=== PATIENT | female | born 1960 | race American Indian/Alaskan Native ===

== ENCOUNTER 2017-12-02 20:40 | Emergency (ER) | payer SELFPAY ==
--- NOTE | 2017-12-03 01:02 | Emergency Department Report ---
HPI - General Chief Complaint: Medical Clearance Time Seen by Provider: 12/02/17 23:51 - HPI HPI: The patient is a 57-year-old female with a significant history of mental health disease, who presents for evaluation of mental health. The patient states that she has been off of her mental health medication regimen, she requested prescription refill. The patient's mother states that the patient has been delusional and exhibiting abnormal behavior. The patient's mother shares that the patient's is , but the patient states on interview that she is still to her , whom is actually . The patient denies fever, headache, unexplained weight loss or weight gain, heat or cold intolerance, skin, hair, or nail changes, neuro deficits, homicidal ideations, or auditory or visual hallucinations. ED Past Medical Hx - Past Medical History Previous Medical History?: Yes Hx Hypertension: Yes Hx Psychiatric Treatment: Yes (Bipolar) Hx Asthma: Yes - Surgical History Past Surgical History?: No - Social History Smoking Status: Current Every Day Smoker Substance Use Type: None ED Review of Systems ROS: Stated complaint: MEDS Other details as noted in HPI Constitutional: denies: fever ENT: denies: throat or neck pain Respiratory: denies: cough, shortness of breath Cardiovascular: denies: chest pain Endocrine: denies unexplained weight loss or gain Gastrointestinal: denies: abdominal pain, nausea Genitourinary: denies: dysuria Musculoskeletal: denies: leg swelling Skin: denies: rash Neurological: denies: headache Hematological/Lymphatic: denies: easy bleeding or easy bruising Psych: denies sadness or hopelessness Physical Exam - Physical Exam Vital Signs: Vital Signs 12/02/17 12/03/17 20:58 00:17 Temperature 98.4 F 98.6 F Pulse Rate 94 H 102 H Respiratory 18 18 Rate Blood Pressure 179/97 Blood Pressure 164/92 [Right] O2 Sat by Pulse 98 98 Oximetry Physical Exam: General: well-nourished, well-developed, no acute distress Head: Normocephalic, atraumatic Eyes: normal sclera ENT: Mucous membranes are pink and moist Neck: trachea midline, neck supple, No neck stiffness, no cervical adenopathy Respiratory: Breath sounds equal bilaterally, no wheezing, rales, or rhonchi Cardio: S1 and S2 present, no murmurs, rubs, gallops, capillary refill is brisk Abdomen: Normoactive bowel sounds, soft abdomen, no rigidity, no guarding or rebound tenderness Musc: No pitting edema Skin: No rash Neuro: no facial drooping, normal speech Psych: Normal affect, poor insight, disorganized thoughts, no hallucinations ED Course Vital Signs 12/02/17 12/03/17 20:58 00:17 Temperature 98.4 F 98.6 F Pulse Rate 94 H 102 H Respiratory 18 18 Rate Blood Pressure 179/97 Blood Pressure 164/92 [Right] O2 Sat by Pulse 98 98 Oximetry ED Medical Decision Making - Medical Decision Making The patient was seen and examined by myself. The patient is placed on a hospital monitor and continuous pulse ox. On initial evaluation, the patient was found to be in no distress. Labs collection is pending as the patient has declined lab draw. Mental health is consulted. Mental health evaluates the patient and agrees that the patient is exhibiting signs of acute psychosis. A 1013 is completed. The patient will be admitted to a psychiatric facility once labs are obtained, once she is medically clear, and once bed placement is obtained. Critical care attestation.: If time is entered above; I have spent that time in minutes in the direct care of this critically ill patient, excluding procedure time. ED Disposition Clinical Impression: Acute psychosis Disposition: [id number]/TX-65 PSY HOSP/PSY UNIT Is pt being admited?: No Does the pt Need Aspirin: No Condition: Stable Referrals: PRIMARY CARE, [Primary Care Provider] - 3-5 Days Time of Disposition: 01:27
[2017-12-03] MEDS ORDERED: CATAPRES PO ONE (01:28)
[2017-12-03] MEDS ORDERED: VALIUM PO ONE (01:28)
[2017-12-03] MEDS ORDERED: TYLENOL PO PRN (01:29)
[2017-12-03] MEDS ORDERED: MILK OF MAGNESIA PO PRN (01:29)
[2017-12-03] MEDS ORDERED: ALUM-MAG HYDROX-SIMETH 200-200-20MG/5ML PO PRN (01:29)
[2017-12-03 02:20] LABS: Bilirubin,Urine NEG (Negative); Blood,Urine SM (Negative); Color,Urine Straw (Yellow); Protein,Urine <15 mg/dL mg/dL (Negative); Urobilinogen,Urine < 2.0 mg/dL (<2.0)
[2017-12-03 02:28] LABS: Amphetamine Screen,Urine PRESUMPTIVE NEGATIVE; Benzodiazepines Screen,Urine PRESUMPTIVE NEGATIVE; Cannabinoid Screen,Urine PRESUMPTIVE NEGATIVE; Cocaine Screen,Urine PRESUMPTIVE NEGATIVE; Methadone Screen,Urine PRESUMPTIVE NEGATIVE; Opiate Screen,Urine PRESUMPTIVE NEGATIVE
[2017-12-03 03:20] LABS: Basophils # (Auto) 0.1 K/mm3 (0.0-0.1); Basophils % (Auto) 0.7 % (0.0-1.8); Eosinophils # (Auto) 0.1 K/mm3 (0.0-0.4); Eosinophils % (Auto) 0.8 % (0.0-4.3); Hematocrit 39.4 % (30.3-42.9); Hemoglobin 13.5 gm/dl (10.1-14.3); Lymphocytes # (Auto) 1.6 K/mm3 (1.2-5.4); Lymphocytes % (Auto) 21.2 % (13.4-35.0); Mean Corpuscular HGB Conc 34 % (30-34); Mean Corpuscular Hemoglobin 35 pg (28-32); Mean Corpuscular Volume 102 fl (79-97); Monocytes # (Auto) 0.6 K/mm3 (0.0-0.8); Monocytes % (Auto) 8.2 % (0.0-7.3); Platelet Count 220 K/mm3 (140-440); Red Blood Count 3.88 M/mm3 (3.65-5.03); Red Cell Distribution Width 13.1 % (13.2-15.2)
[2017-12-03] MEDS ORDERED: CATAPRES ONE (03:30)
[2017-12-03 03:43] LABS: BUN/Creatinine Ratio 23; Blood Urea Nitrogen 14 mg/dL (7-17); Calcium 9.6 mg/dL (8.4-10.2); Hemolysis Index 6
[2017-12-03 13:20] VITALS: BP 123/76
--- NOTE | 2017-12-03 14:08 | Consultation ---
History of Present Illness - Reason for Consult Consult date: 12/03/17 Reason for consult: Mental Health Evaluation Requesting physician: CANDIDA VANCE - Chief Complaint Chief complaint: "I need my medications filled" - History of Present Psychiatric Illness 57-year-old female with a significant history of mental health disease, who presents for evaluation of mental health. Today the patient is calm, but hyper verbal during the assessment. She stated that she came to the ER to get her medication filled. She was disorganized with her thoughts and also referenced that she live with her . Per the record, the patient's is . She is adamant that her is still alive and currently at work today. She was asked about her sleep, she stated not sleeping the past 2 days. She stated having increased energy. She denies SI/HI's and AVH's. She denies recreational drug and alcohol consumption (etoh). Medications and Allergies Allergies Allergy/AdvReac Type Severity Reaction Status Date / Time No Known Allergies Allergy Verified 12/03/17 03:34 Active Meds: Active Medications Acetaminophen (Tylenol) 650 mg PO Q4HR PRN PRN Reason: Pain MILD(1-3)/Fever >100.5/MUÑOZ Al Hydrox/Mg Hydrox/Simethicone (Alum-Mag Hydrox-Simeth [id number]/5ml) 30 ml PO Q4HR PRN PRN Reason: Indigestion Magnesium Hydroxide (Milk Of Magnesia) 30 ml PO Q12HR PRN PRN Reason: Constipation Past psychiatric history - Past Medical History Past Medical History: hypertension, other (Asthma) Past Surgical History: No surgical history - past Psychiatric treatment and history psychiatric treatment history: The patient is seen by Dr Pantera Barnes for outpatient psy services. She denies a fam psy hx. - Social History Social history: Lives alone Mental Status Exam - Vital signs Last Vital Signs Temp 98.3 F 12/03/17 13:19 Pulse 89 12/03/17 13:19 Resp 18 12/03/17 13:19 BP 123/76 12/03/17 13:19 Pulse Ox 98 12/03/17 13:19 - Exam Narrative exam: MSE: Appearance: cooperative Behavior: regular eye contact Speech: regular rate and tone, hyper verbal Mood: "okay" Affect: congruent to mood Thought Process: disorganized Thought Content: denies SI/HI's and AVH's, delusional Motor Activity: sitting up in bed Cognition: A/O x 3 Insight: poor Judgment: poor Results Result Diagrams: 12/03/17 03:11 12/03/17 03:11 Abnormal lab results 12/03/17 12/03/17 12/03/17 Range/Units 03:11 03:11 03:11 MCV (79-97) fl MCH (28-32) pg RDW (13.2-15.2) % Sunflower % (Auto) (0.0-7.3) % Creatinine 0.6 L (0.7-1.2) mg/dL Glucose 106 H (65-100) mg/dL Salicylates < 0.3 L (2.8-20.0) mg/dL Acetaminophen < 5.0 L (10.0-30.0) ug/mL 12/03/17 Range/Units 03:11 MCV 102 H (79-97) fl MCH 35 H (28-32) pg RDW 13.1 L (13.2-15.2) % Sunflower % (Auto) 8.2 H (0.0-7.3) % Creatinine (0.7-1.2) mg/dL Glucose (65-100) mg/dL Salicylates (2.8-20.0) mg/dL Acetaminophen (10.0-30.0) ug/mL All other labs normal. Assessment and Plan Assessment and plan: Impression: Bipolar DO with psychosis/mary. Today the patient is calm, but hyper verbal during the assessment. UDS is negative. DDx: R/O Schizoaffective DO Recommendation/Plan: Continue 1013 with placement to [facility] today.
== END 2017-12-03 17:15 ==
LOC: ED 20:40
DX: F23 Brief psychotic disorder (principal); I10 Essential (primary) hypertension; F31.9 Bipolar disorder, unspecified; J45.909 Unspecified asthma, uncomplicated; F17.200 Nicotine dependence, unspecified, uncomplicated; Z79.899 Other long term (current) drug therapy
CPT/HCPCS: 36415; 80048; 80307; 81001; 85025; 99285; G0480; 80320